=== PATIENT | female | born 1945 | race Caucasian/White ===

== ENCOUNTER 2016-11-13 01:28 | Observation (INO) ==
[2016-11-13] MEDS ORDERED: ONDANSETRON ODT 4 MG TABLET ONE (01:39)
[2016-11-13] MEDS ORDERED: ONDANSETRON ODT 4 MG TABLET SL ONE (01:41)
[2016-11-13] MEDS: HYDROmorphone 2 MG/ML SYRINGE IV PRN ×8 (02:00→21:04)
[2016-11-13] MEDS ORDERED: ONDANSETRON 4 MG/2 ML VIAL IV ONE (02:40)
[2016-11-13] MEDS ORDERED: SCOPOLAMINE 1 PATCH PATCH TOPICAL ONE ×3 (02:44→18:00)
[2016-11-13] MEDS ORDERED: 0.9 % SODIUM CHLORIDE 1,000 ML IV SCH ×3 (02:45→09:19)
[2016-11-13] MEDS ORDERED: SCOPOLAMINE 1 PATCH PATCH TOPICAL SCH (02:45)
--- NOTE | 2016-11-13 07:07 | Emergency Department Note ---
General Adult HPI - General Chief complaint: Dizziness Stated complaint: dizziness Time Seen by Provider: 11/13/16 02:36 Source: patient Mode of arrival: ambulatory Limitations: no limitations - History of Present Illness HPI Narrative: This patient has had vertigo and headache for last several days. He was treated by Dr. Robles in yesterday with IV fluids, following patch and Zofran. Symptoms are not completely gone away and she is back in the middle of night now. Headache is frontal no history of migraines. Apparently she did stop all her medications including Lipitor 4 days ago - Related Data Home Medications Medication Instructions Recorded Confirmed C-E2 0.6mg/E3 1.4mg 1 cap PO QDAY 03/21/15 11/12/16 C-Progesterone 1 cap PO QDAY 03/21/15 11/12/16 ascorbic acid (vitamin C) 500 mg 500 mg PO QDAY tab 09/11/15 11/12/16 chewable tablet vitamin B complex tablet 1 tab-cap PO QDAY 09/11/15 11/12/16 Biotin 1 mg PO QDAY 10/02/15 11/12/16 aspirin 81 mg chewable tablet See Dose Instructions PO QDAY tab 10/02/15 olmesartan 40 mg-amlodipine 10 1 tab-cap PO QDAY 08/19/16 11/12/16 mg-hydrochlorothiazide 25 mg tablet normal saline infusion 2 dose IV NOW 11/12/16 11/12/16 Previous Rx's Medication Instructions Recorded bimatoprost 0.03 % drops with 1 applic TOPICAL .COMPLEX #3 ml 09/17/15 applicator, eyelash base omeprazole 40 mg capsule,delayed 40 mg PO QDAY #90 cap 09/18/15 release solifenacin 5 mg tablet 5 mg PO QDAY #30 tab 10/18/15 fenofibrate 54 mg tablet 54 mg PO QDAY #90 tab 03/14/16 methocarbamol 500 mg tablet 1,000 mg PO QID PRN #180 tab 08/04/16 lorazepam 1 mg tablet 1 mg PO TID PRN #30 tab 08/19/16 trazodone 100 mg tablet 100 mg PO QHS #30 tab 08/19/16 bupropion HCl 75 mg tablet 75 mg PO BID #60 tab 09/04/16 atorvastatin 20 mg tablet 20 mg PO QDAY #90 tab 10/08/16 gabapentin 300 mg capsule 300 mg PO BID #180 cap 10/20/16 ondansetron 4 mg disintegrating 4 mg PO Q4H #20 tab 11/12/16 tablet ondansetron HCl 2 mg/mL 4 mg IV ONCE #2 ml 11/12/16 intravenous solution Allergies Allergy/AdvReac Type Severity Reaction Status Date / Time ciprofloxacin [From Cipro] AdvReac Unknown Hypertensio Verified 11/12/16 11:38 n Seasonal Allergy Unknown Other Uncoded 11/12/16 11:38 topamax AdvReac Severe Blurry Uncoded 11/12/16 11:38 Vision Review of Systems Constitutional: Denies: fever, chills Eyes: Denies: eye pain ENT ED: Denies: ear pain Cardiovascular: Denies: chest pain Respiratory: Denies: cough Gastrointestinal: Reports: nausea, vomiting. Denies: abdominal pain Genitourinary: Denies: urgency Musculoskeletal: Denies: back pain Integumentary: Denies: rash Neurological: Reports: headache, vertigo Past Medical History - Past Medical History Medical history: Reports: GERD, hyperlipidemia, hypertension, osteoporosis, renal disease, other (uclear sclerosis. Ischemic optic neuropathy. All bowel syndrome.) Surgical history ED: Reports: hysterectomy, orthopedic, other Psychiatric history: Reports: anxiety, depression Physical Exam - General Limitations: no limitations General appearance: alert - Head Head exam: atraumatic - Eye Eye exam: Present: normal appearance - ENT ENT exam: normal exam - Neck Neck exam: Present: normal inspection - Chest Chest inspection: Present: normal inspection - Respiratory Respiratory exam: Present: normal lung sounds bilaterally - Cardiovascular Cardiovascular exam: Present: regular rate, normal rhythm, normal heart sounds - Abdominal Exam Abdominal exam: Present: soft. Absent: distention, tenderness - Neurological Exam Neurological exam: Present: alert - Psychiatric Psychiatric exam: Present: normal affect - Skin Skin exam: Present: warm, dry Course Vital Signs Temperature 98.7 F 11/13/16 01:28 Pulse Rate 65 11/13/16 01:28 Respiratory Rate 19 11/13/16 01:28 Blood Pressure 173/95 11/13/16 01:28 Pulse Oximetry (%) 100 11/13/16 01:28 Temperature 98.7 F 11/13/16 01:28 Pulse Rate 61 11/13/16 07:18 Respiratory Rate 19 11/13/16 01:28 Blood Pressure 139/77 11/13/16 07:18 Pulse Oximetry (%) 99 11/13/16 07:18 Medical Decision Making - [facility] Narrative Medical decision making narrative: This patient will be admitted observation and get an MRI at 11. - Radiology Data Radiology results reviewed: Yes I reviewed the patient's radiology results. (CT scan was negative) Disposition Clinical Impression: Vertigo Disposition: Xfer As Outpt/Obs ([facility]) Condition: Good Referrals: Jona Guerra MD [Primary Care Provider] - Time of Disposition: 07:57
--- NOTE | 2016-11-13 08:00 | Cat Scan Report ---
History: Dizziness Findings: The brain was imaged without contrast at 2.5 mm intervals. There is no evidence of mass, hemorrhage or infarct. There are subtle areas of decreased attenuation in the white matter in both frontal lobes. This is a chronic finding which was seen on a prior MRI done on 10/20/14. The brainstem and cerebellum appear normal. The right side mastoids are undeveloped. The left side mastoids are clear. There is mucosal thickening along the robin of many of the ethmoid air cells. Impression: Normal brain for patient's age Mild bilateral ethmoid sinusitis Interpreted and Authenticated by: Brad Cha 11/13/16
[2016-11-13 08:38] LABS: Appearance,Urine CLEAR; Bacteria,Urine FEW /hpf (0); Bilirubin,Urine NEG (NEG); Color,Urine P.YELLOW; Glucose,Urine (UA) NORM (NORM); Leukocyte Esterase,Urine NEG /mcL (NEG); Mucus,Urine FEW /hpf (0); Nitrate,Urine NEG (NEG); PH,Urine 7.5 (5.0-9.0); Protein,Urine TRACE mg/dL (<25); Urine Blood NEG ery/mcL (<5); Urine RBC < 1 /hpf (0-1); Urine Squamous Epithelial Cell < 1 /hpf (0-4); Urine WBC 1 /hpf (0-4); Urobilinogen,Urine NORM (NORM)
[2016-11-13 08:43] LABS: Basophils # (Auto) 0 K/mcL (0.0-0.3); Basophils % (Auto) 0.5 % (0.0-2.0); Eosinophils # (Auto) 0.1 K/mcL (0.0-0.7); Eosinophils % (Auto) 1.6 % (0.0-7.0); Granulocytes % (Auto) 60.4 % (38.0-78.0); Lymphocytes # (Auto) 1.4 K/mcL (1.5-4.8); Lymphocytes % (Auto) 29.5 % (15.5-49.0); Mean Cell Volume 87.7 fL (80.0-100.0); Mean Corpuscular HGB Conc 32.7 g/dL (31.0-36.0); Mean Corpuscular Hemoglobin 28.7 pg (26.0-34.0); Monocytes # (Auto) 0.4 K/mcL (0.1-0.9); Platelet Count 213 K/mcL (140-440); RBC 4.05 M/mcL (4.00-5.20); Red Cell Distribution Width 14.6 % (11.5-14.5)
[2016-11-13 09:05] LABS: ALT/SGPT 16 U/l (0-40); Albumin 3.9 gm/dL (3.2-5.2); Albumin/Globulin Ratio 1.6 (1.0-2.3); Alkaline Phosphatase 68 U/L (39-117); Blood Urea Nitrogen 12 mg/dl (8-23)
[2016-11-13] MEDS ORDERED: DOCUSATE SODIUM 100 MG CAPSULE PO SCH (09:19)
[2016-11-13] MEDS ORDERED: ASPIRIN 81 MG TAB.CHEW CHEWED ONE (09:19)
[2016-11-13] MEDS ORDERED: PROMETHAZINE 25 MG/ML VIAL IV PRN ×2 (09:19→17:20)
[2016-11-13] MEDS ORDERED: POTASSIUM CHLORIDE 20 MEQ PACKET PO PRN ×2 (09:19→17:20)
[2016-11-13] MEDS ORDERED: MAGNESIUM SULFATE 2 GM/50 ML BAG IV PRN ×2 (09:19→17:20)
[2016-11-13] MEDS ORDERED: MULTIVIT,THER IRON,CA,FA & MIN 1 TABLET PO SCH (09:19)
[2016-11-13] MEDS ORDERED: ONDANSETRON 4 MG/2 ML VIAL IV PRN ×2 (09:19→17:20)
[2016-11-13] MEDS ORDERED: ACETAMINOPHEN 1,000 MG/100 ML BOTTLE IV PRN ×2 (09:19→17:20)
[2016-11-13] MEDS ORDERED: traZODone HCL 50 MG TABLET PO PRN (09:19)
[2016-11-13] MEDS ORDERED: ACETAMINOPHEN 325 MG TABLET PO PRN (09:19)
[2016-11-13] MEDS ORDERED: cefTRIAXone 2 GM in DEXTROSE 5% IN WATER 50 ML IV SCH (10:00)
[2016-11-13] MEDS ORDERED: THIAMINE 100 MG in 0.9 % SODIUM CHLORIDE 50 ML IV SCH (10:00)
[2016-11-13] MEDS ORDERED: diphenhydrAMINE 50 MG/ML VIAL IV PRN ×2 (13:18→17:20)
[2016-11-13] MEDS ORDERED: METHOCARBAMOL 500 MG TABLET PO PRN (13:19)
[2016-11-13] MEDS ORDERED: LORazepam 1 MG TABLET PO PRN (13:19)
[2016-11-13] MEDS ORDERED: BIMATOPROST TOPICAL SCH (13:30)
--- NOTE | 2016-11-13 13:40 | Magnetic Resonance Report ---
History: Dizziness Technique: The neck was imaged before and after gadolinium contrast. 3-D images were then created. Findings: The aortic arch and great vessels arising from the aorta are normal in caliber. At the origin of the left vertebral artery there are two contiguous stenoses. There is causing less than 50% stenosis. Distal to this the left vertebral artery is normal. The right vertebral artery is normal in caliber. The common carotids and carotid bifurcations are normal without evidence of plaque formation, stenosis or dissection. The internal and external carotid arteries are normal. Impression: Less than 50% stenosis at the origin of left vertebral artery Normal carotid arteries Interpreted and Authenticated by: Brad Cha 11/13/16
--- NOTE | 2016-11-13 13:47 | Magnetic Resonance Report ---
CLINICAL INFORMATION: New onset dizziness, rule out stroke COMPARISON: 10/20/14 TECHNIQUE: Sagittal T1 FLAIR, axial diffusion ADC, T1 FLAIR, T2 FLAIR propeller, T2 propeller gradient, T1 post Magnevist and coronal T1 FLAIR post Magnevist images were acquired. FINDINGS: The T2 and FLAIR sequences reveal the presence of a few small scattered white matter lesions in the centrum semiovale in the frontal lobes and a couple in the parietal lobes. There is also a small similar-appearing lesion in the left side of the belly of the orlando. These are no mass effect or restricted diffusion and none of them enhance with contrast. The largest is 3 mm. These have all remained stable since prior MRI done on 10/20/14. There is no evidence of an infarct, hemorrhage or mass. The ventricles and cisterns are normal. The post contrast views show no abnormal enhancement. The cerebellum and basal ganglia are normal. The mastoids are clear. There is mucosal thickening along the robin of the sphenoid, ethmoid and frontal sinuses. IMPRESSION: Stable mild white matter disease, predominantly involving the frontal lobes but with milder involvement in the parietal lobes and left side of the orlando. This is probably due to microvascular ischemia or degeneration No acute abnormality is present to explain the patient's dizziness Interpreted and Authenticated by: Brad Cha 11/13/16
--- NOTE | 2016-11-13 13:55 | Magnetic Resonance Report ---
History: Dizziness Technique: MRA images were acquired of the intracranial circulation. 3-D reconstructions were created. Postcontrast views were also acquired. Findings: The intracranial arterial circulation is normal. There is no evidence of stenosis, vascular occlusion, aneurysm or developmental malformation. The right posterior and anterior to indicating arteries are patent. Impression: Normal intracranial arterial circulation Interpreted and Authenticated by: Brad Cha 11/13/16
--- NOTE | 2016-11-13 13:55 | History and Physical Report ---
DATE OF ADMISSION: 11/13/2016 REASON FOR ADMISSION: Intense vertigo, headache, recent URI, dizziness. HISTORY OF CHIEF COMPLAINT: The patient is a 71-year-old who has had progressive dizziness with a spinning sensation after she had URI symptoms that started on Thursday. Symptoms have progressed to the point the patient can barely move or function with continuous spinning sensation. She does not endorse to auditory symptoms. She does endorse to headaches frontoparietal throbbing in nature. she denied history of migraine. Symptoms last for hours and is persistent, associated with severe nausea and vomiting. She denies unilateral weakness, Incontinence, [place] headache. Initial workup in the ER was negative with a head CT. Hospitalist Service consulted for evaluation of vertigo while patient received initial anti-vertigo medications. At time of examination, the patient is accompanied with her . She was able to provide most of the history. She appears distressed. Her nausea has improved after Zofran, but persistent vertigo. She avoids head movements. She denies recent changes in medication except for her regular medication that she is unable to take due to nausea. She denies abdominal pain, diarrhea, dysuria, recent sick contacts or photophobia. REVIEW OF SYSTEMS: Ten-point review of system was performed and negative except the ones discussed above. PAST MEDICAL HISTORY: 1. Hypertension. 2. GERD. 3. Hyperlipidemia. 4. Anxiety disorder. 5. Neuropathy. 6. 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 7. Irritable bowel syndrome. CURRENT MEDICATIONS: 1. Atorvastatin 20 mg. 2. Bupropion 75 mg. 3. Trazodone 100 mg. 4. Lorazepam 1 mg t.i.d. 5. Methocarbamol 1000 mg q.i.d. 6. Fenofibrate 54 mg daily. 7. Solifenacin 5 mg. 8. Omeprazole 40 mg. 9. Jzzhgniwzk-kigjamjwnf-hnzrazfkwmeulxwundc 40/10/25 mg one tab daily. 10. Aspirin 81 mg. FAMILY HISTORY: Significant for breast cancer in sister. Colon cancer in cousin. SOCIAL HISTORY: The patient is and lives in [facility]. No history of smoking, alcohol or substance abuse. ALLERGIES: 1. CIPRO. 2. TOPAMAX. PHYSICAL EXAMINATION: GENERAL: The patient is fairly distressed from persistent dizziness. VITAL SIGNS: Blood pressure 139/74, BMI 25, height 5 feet 2 inches, respiratory rate 16, temperature 97.1, pulse 67 and sats 99% on room air. HEENT: Pupils symmetric. Oral cavity is dry. No ear or nose discharge. No nystagmus. NECK: No lymphadenopathy. HEART: S1, S2, regular rhythm. No murmur. ABDOMEN: Soft. LOWER EXTREMITIES: No cyanosis or clubbing. No joint swelling. SKIN: No suspicious lesions. PSYCHIATRIC: Alert and cooperative. No anxiety. NEURO: Nonfocal, moving all four extremities. LABS AND IMAGING: White count 4.9, hemoglobin 11.6. Sodium 139, potassium 3.9, creatinine 0.9. Procalcitonin negative. UA unremarkable. CT head: No acute process. MRI brain along with MR angiogram head and neck pending. ASSESSMENT AND PLAN: A 71-year-old with acute onset of vertigo along with headache. 1. Acute onset of vertigo. Rule out vertebrobasilar insufficiency with MRI of brain. Recent URI may indicate vestibular neuritis given persistent symptoms and single episode lasting continuously for the 3 days without associated artery symptoms. However, we will evaluate for benign positional vertigo with Andrea-Hallpike and perform Shay maneuver if positive. There is no associated hearing loss, excluding Meniere's disease. Continue close monitoring and rule out CVA while we will manage patient symptomatically on crystalloids/anti-vertigo medication, including meclizine and diphenhydramine along with benzodiazepine as needed. 2. Other prior medical issues will be continued on home medications, including hyperlipidemia on statin, coronary artery disease on aspirin/statin, anxiety disorder on bupropion, neuropathy on gabapentin, and GERD on PPI. PLAN FOR TODAY: 1. Admit as observation. 2. Neuro imaging. 3. Anti-vertigo and antiemetics. AA:brady Job ID: [id number] Doc ID: [id number] Cullen Guerra MD [facility]
[2016-11-13] MEDS ORDERED: 0.9 % SODIUM CHLORIDE 10 ML SYRINGE IV SCH (14:00)
[2016-11-13] MEDS ORDERED: PANTOPRAZOLE 40 MG TABLET PO PRN ×2 (14:00→17:20)
[2016-11-13] MEDS ORDERED: HYDROmorphone 2 MG/ML SYRINGE IV PRN (17:20)
[2016-11-13] MEDS: 0.9 % SODIUM CHLORIDE 1,000 ML IV SCH (17:48)
[2016-11-13] MEDS: ACETAMINOPHEN 325 MG TABLET PO PRN (19:15)
[2016-11-13] MEDS: LORazepam 1 MG TABLET PO PRN (19:15)
[2016-11-13] MEDS: SENNOSIDES/DOCUSATE SODIUM 1 TAB TABLET PO SCH (20:05)
[2016-11-13] MEDS: GABAPENTIN 300 MG CAPSULE PO SCH (20:06)
[2016-11-13] MEDS: buPROPion 75 MG TABLET PO SCH (20:07)
[2016-11-13] MEDS: DOCUSATE SODIUM 100 MG CAPSULE PO SCH (20:07)
[2016-11-13] MEDS ORDERED: traZODone HCL 50 MG TABLET PO SCH (21:00)
[2016-11-13] MEDS ORDERED: SENNOSIDES/DOCUSATE SODIUM 1 TAB TABLET PO SCH (21:00)
[2016-11-13] MEDS ORDERED: GABAPENTIN 300 MG CAPSULE PO SCH (21:00)
[2016-11-13] MEDS ORDERED: buPROPion 75 MG TABLET PO SCH (21:00)
[2016-11-13] MEDS: traZODone HCL 50 MG TABLET PO SCH (22:45)
[2016-11-13] MEDS: 0.9 % SODIUM CHLORIDE 10 ML SYRINGE IV SCH (22:47)
[2016-11-14] MEDS: 0.9 % SODIUM CHLORIDE 1,000 ML IV SCH ×5 (00:30→21:59)
[2016-11-14] MEDS: ACETAMINOPHEN 325 MG TABLET PO PRN ×3 (02:02→17:22)
[2016-11-14] MEDS: LORazepam 1 MG TABLET PO PRN ×3 (02:03→19:41)
[2016-11-14] MEDS: HYDROmorphone 2 MG/ML SYRINGE IV PRN ×2 (02:23→09:03)
[2016-11-14] MEDS: 0.9 % SODIUM CHLORIDE 10 ML SYRINGE IV SCH ×3 (06:06→22:01)
[2016-11-14 06:26] LABS: Mean Cell Volume 88.5 fL (80.0-100.0); Mean Corpuscular HGB Conc 32.5 g/dL (31.0-36.0); Mean Corpuscular Hemoglobin 28.8 pg (26.0-34.0); Platelet Count 197 K/mcL (140-440); Red Cell Distribution Width 14.6 % (11.5-14.5)
[2016-11-14 06:59] LABS: ALT/SGPT 17 U/l (0-40); Albumin 3.5 gm/dL (3.2-5.2); Albumin/Globulin Ratio 1.6 (1.0-2.3); Alkaline Phosphatase 64 U/L (39-117); Bilirubin,Direct < 0.2 mg/dL (0.0-0.3); Blood Urea Nitrogen 15 mg/dl (8-23); Gamma Glutamyl Transpeptidase 46 U/L (5-36); Magnesium 1.8 mg/dL (1.6-2.5); Phosphorous 3.7 mg/dL (2.7-4.5)
[2016-11-14 08:09] LABS: Band Neutrophils % 2 % (0-10); Basophils % (Manual) 2 % (0-2); Eosinophils % (Manual) 2 % (0-7); Lymphocytes % 31 % (15-49); Monocytes % (Manual) 12 % (1-9); Platelet Estimate NORMAL (NORMAL); RBC Morphology NORMAL (NORMAL); Segmented Neutrophils % 51 % (38-78)
[2016-11-14] MEDS ORDERED: ATORVASTATIN 20 MG TABLET PO SCH (09:00)
[2016-11-14] MEDS ORDERED: amLODIPine 10 MG TABLET PO SCH (09:00)
[2016-11-14] MEDS ORDERED: [UNRECOGNIZED DRUG - OTHER] PO SCH (09:00)
[2016-11-14] MEDS ORDERED: AMLODIPIN PO SCH (09:00)
[2016-11-14] MEDS ORDERED: HYDROCHLOROTHIAZIDE 25 MG TABLET PO SCH (09:00)
[2016-11-14] MEDS ORDERED: OLMESARTAN MEDOXOMIL 20 MG TABLET PO SCH (09:00)
[2016-11-14] MEDS ORDERED: HCTHIAZID PO SCH (09:00)
[2016-11-14] MEDS ORDERED: OLMESARTAN PO SCH (09:00)
[2016-11-14] MEDS: ATORVASTATIN 20 MG TABLET PO SCH (09:02)
[2016-11-14] MEDS: MULTIVIT,THER IRON,CA,FA & MIN 1 TABLET PO SCH (09:02)
[2016-11-14] MEDS: HYDROCHLOROTHIAZIDE 25 MG TABLET PO SCH (09:03)
[2016-11-14] MEDS: amLODIPine 10 MG TABLET PO SCH (09:03)
[2016-11-14] MEDS: GABAPENTIN 300 MG CAPSULE PO SCH ×2 (09:03→19:41)
[2016-11-14] MEDS: DOCUSATE SODIUM 100 MG CAPSULE PO SCH ×2 (09:03→21:28)
[2016-11-14] MEDS: OLMESARTAN MEDOXOMIL 20 MG TABLET PO SCH (09:08)
[2016-11-14] MEDS: THIAMINE 100 MG in 0.9 % SODIUM CHLORIDE 50 ML IV SCH (09:09)
[2016-11-14] MEDS: buPROPion 75 MG TABLET PO SCH ×2 (09:09→21:28)
[2016-11-14] MEDS ORDERED: HYDROmorphone 2 MG/ML SYRINGE IV PRN (09:49)
[2016-11-14] MEDS: cefTRIAXone 2 GM in DEXTROSE 5% IN WATER 50 ML IV SCH (10:42)
--- NOTE | 2016-11-14 11:49 | Internal Med Progress Note ---
Medical - PN: Subj Patient information: Note initiated : 11/14/16 at 11:47 am Service Date, if different from initiated Date: [] Patient: Sparkle Lam 71 y/o F admitted on 11/13/16 for Dizziness/Acute Onset of Vertigo along w/ Headache. Chief Complaint: [] Interval history: 11/13 patient admitted with severe nausea vomiting and vertigo after URI. Likely vestibular neuritis. Negative MRI brain/MRA angiogram head and neck ruling out CVA. Andrea-Hallpike in 24 hours. Continue vestibular rehabilitation. Continue antivertigo medications. 11/14- patient complains of persistent headache. unremarkable for CVA. CT head ethmoid sinusitis. Negative pro-calcitonin CRP. No fever indicating again infectious process. Very likely vestibular neuritis given non-resolving persistent symptoms. Continue symptomatic management. Continue vestibular rehabilitation. - Constitutional Vitals: Vital Signs Temp Pulse Resp BP Pulse Ox 97.4 F L 56 L 16 136/84 99 11/14/16 08:24 11/14/16 04:56 11/14/16 10:00 11/14/16 08:24 11/14/16 10:00 Period Temp Pulse Resp BP Sys/Earl Pulse Ox Last 24 Hr 97.4 F-98.7 F 56-64 12-20 115-169/75-86 94-99 Intake and Output 11/13/16 11/14/16 11/14/16 21:59 05:59 13:59 Intake Total 300 / 300 1085 / 1085 Output Total 725 / 725 650 / 650 Balance -425 / -425 435 / 435 Weight 144 lb Intake & Output: Intake & Output 11/13/16 11/14/16 11/14/16 21:59 05:59 13:59 Intake Total 300 / 300 1085 / 1085 Output Total 725 / 725 650 / 650 Balance -425 / -425 435 / 435 Weight 144 lb Intake: IV 865 / 865 Sodium Chloride 0.9% 1, 865 / 865 000 ml @ 100 mls/hr IV . Q10H [facility] Rx#:[id number] Oral 300 / 300 220 / 220 Output: Void Amount 725 / 725 650 / 650 Other: Meal Breakfast Percent of Meal Consumed 50% Feeding Ability Independent General appearance: cooperative, no acute distress Exam: alert oriented nonlabored breathing Appears drowsy persistent dizziness Medical - PN: Obj Da - Labs CBC & Chem 7: 11/14/16 04:40 11/14/16 04:40 Labs: Abnormal Lab Results 11/14/16 11/14/16 11/13/16 04:40 04:40 09:23 RBC 3.70 L Hgb 10.6 L Hct 32.7 L RDW 14.6 H Monocytes % (Manual) 12 H ESR 31 H Calcium 8.2 L GGT 46 H Total Protein 5.7 L Meds: Medications Acetaminophen (Tylenol) 650 mg PO Q4-6HP PRN PRN Reason: PAIN/FEVER > 101 Last Admin: 11/14/16 02:02 Dose: 650 mg Amlodipine Besylate (Norvasc) 10 mg PO DAILY [facility] Last Admin: 11/14/16 09:03 Dose: 10 mg Atorvastatin Calcium (Lipitor) 20 mg PO QDAY [facility] Last Admin: 11/14/16 09:02 Dose: 20 mg Bupropion HCl (Wellbutrin) 75 mg PO BID [facility] Last Admin: 11/14/16 09:09 Dose: 75 mg Diphenhydramine HCl (Benadryl) 50 mg IV Q4-6HP PRN PRN Reason: Vertigo Docusate Sodium (Colace) 100 mg PO BID [facility] Last Admin: 11/14/16 09:03 Dose: 100 mg Gabapentin (Neurontin) 300 mg PO BID [facility] Last Admin: 11/14/16 09:03 Dose: 300 mg Hydrochlorothiazide (Oretic) 25 mg PO DAILY [facility] Last Admin: 11/14/16 09:03 Dose: 25 mg Hydromorphone HCl (Dilaudid) 0.25 mg IV Q4-6HP PRN PRN Reason: Pain Magnesium Sulfate (Magnesium Sulfate) 2 gm in 50 mls @ 50 mls/hr IV UD PRN PRN Reason: MG = or < 1.7 Sodium Chloride (Sodium Chloride 0.9%) 1,000 mls @ 100 mls/hr IV .Q10H [facility] Last Admin: 11/14/16 09:10 Dose: 100 mls/hr Acetaminophen (Ofirmev) 1,000 mg in 100 mls @ 200 mls/hr IV Q6HP PRN PRN Reason: PAIN/FEVER > 101 Thiamine HCl 100 mg/ Sodium (Chloride) 51 mls @ 50 mls/hr IV DAILY [facility] Stop: 11/15/16 10:02 Last Admin: 11/14/16 09:09 Dose: 50 mls/hr Ceftriaxone Sodium 2 gm/ (Dextrose) 50 mls @ 100 mls/hr IV Q24H [facility] Last Admin: 11/14/16 10:42 Dose: 100 mls/hr Iron Carb/Multivit/[place]/Folic Acid (Multivitamin W/Minerals) 1 tab PO DAILY [facility] Last Admin: 11/14/16 09:02 Dose: 1 tab Lorazepam (Ativan) 1 mg PO TIDP PRN PRN Reason: Pain Last Admin: 11/14/16 02:03 Dose: 1 mg Methocarbamol (Robaxin) 1,000 mg PO PRN PRN PRN Reason: Pain Olmesartan (Benicar) 40 mg PO DAILY [facility] Last Admin: 11/14/16 09:08 Dose: 40 mg Ondansetron HCl (Zofran) 4 mg IV Q4-6HP PRN PRN Reason: Nausea And Vomiting Pantoprazole Sodium (Protonix) 40 mg PO PRN PRN PRN Reason: Heartburn Potassium Chloride (Klor-Con) 40 meq PO DAILYP PRN PRN Reason: K+ < 3.5 Promethazine HCl (Phenergan) 6.25 mg IV Q4-6HP PRN PRN Reason: Nausea And Vomiting Senna/Docusate Sodium (Senna Plus Tablet) 1 tab PO [facility] Last Admin: 11/13/16 20:05 Dose: 1 tab Sodium Chloride (Saline Flush) 10 ml IV Q8 [facility] Last Admin: 11/14/16 06:06 Dose: Not Given Trazodone HCl (Desyrel) 100 mg PO [facility] Last Admin: 11/13/16 22:45 Dose: Not Given Medical - PN: A/P - Time Spent With Patient Total time spent is greater than 50% in coordination of care (as documented) at patient's floor/unit and/or counseling patient: 15 - 24 minutes (1) Vertigo Status: Acute Assessment and plan: * Vertigo-likely vestibular neuritis. Continue conservative management. * Headache-as needed analgesics * Hypertension continue thiazide/amlodipine/ARB * Neuropathy on gabapentin * Hyperlipidemia statin * anxiety on bupropion * GERD on PPI plan * continue vestibular rehabilitation * conservative management * Pre-existing medical condition management as above * Possible discharge in 24 hours if symptomatically improved Current Visit: Yes Medical - PN: Qual - Stroke Onset of Symptoms Date: 11/08/16 Onset of Symptoms Time: Symptom Onset Unknown: No - VTE Deep Vein Thrombosis/Pulmonary Embolism Present on Admission: No
[2016-11-14] MEDS: METHOCARBAMOL 500 MG TABLET PO PRN ×2 (12:07→19:40)
[2016-11-14] MEDS ORDERED: METHOCARBAMOL 750 MG TABLET PO ONE (19:19)
[2016-11-14] MEDS: SENNOSIDES/DOCUSATE SODIUM 1 TAB TABLET PO SCH (19:41)
[2016-11-14] MEDS: traZODone HCL 50 MG TABLET PO SCH (21:28)
[2016-11-15] MEDS: METHOCARBAMOL 500 MG TABLET PO PRN (03:15)
[2016-11-15 04:57] LABS: Mean Cell Volume 87.5 fL (80.0-100.0); Mean Corpuscular HGB Conc 32.6 g/dL (31.0-36.0); Mean Corpuscular Hemoglobin 28.5 pg (26.0-34.0); Platelet Count 197 K/mcL (140-440); RBC 3.79 M/mcL (4.00-5.20); Red Cell Distribution Width 14.3 % (11.5-14.5)
[2016-11-15 05:24] LABS: ALT/SGPT 22 U/l (0-40); Albumin 3.6 gm/dL (3.2-5.2); Albumin/Globulin Ratio 1.6 (1.0-2.3); Alkaline Phosphatase 69 U/L (39-117); Bilirubin,Direct < 0.2 mg/dL (0.0-0.3); Blood Urea Nitrogen 13 mg/dl (8-23); Gamma Glutamyl Transpeptidase 68 U/L (5-36); Magnesium 1.8 mg/dL (1.6-2.5); Phosphorous 3.2 mg/dL (2.7-4.5); Uric Acid 4.7 mg/dL (2.5-8.0)
[2016-11-15] MEDS: 0.9 % SODIUM CHLORIDE 10 ML SYRINGE IV SCH (05:34)
[2016-11-15 07:01] LABS: Eosinophils % (Manual) 3 % (0-7); Lymphocytes % 31 % (15-49); Monocytes % (Manual) 7 % (1-9); Platelet Estimate NORMAL (NORMAL); RBC Morphology NORMAL (NORMAL); Segmented Neutrophils % 58 % (38-78)
[2016-11-15] MEDS: ACETAMINOPHEN 325 MG TABLET PO PRN (07:18)
[2016-11-15] MEDS: buPROPion 75 MG TABLET PO SCH (08:35)
[2016-11-15] MEDS: OLMESARTAN MEDOXOMIL 20 MG TABLET PO SCH (09:03)
[2016-11-15] MEDS: 0.9 % SODIUM CHLORIDE 1,000 ML IV SCH (09:03)
[2016-11-15] MEDS: GABAPENTIN 300 MG CAPSULE PO SCH (09:05)
[2016-11-15] MEDS: HYDROCHLOROTHIAZIDE 25 MG TABLET PO SCH ×2 (09:05→09:25)
[2016-11-15] MEDS: DOCUSATE SODIUM 100 MG CAPSULE PO SCH (09:05)
[2016-11-15] MEDS: ATORVASTATIN 20 MG TABLET PO SCH (09:06)
[2016-11-15] MEDS: MULTIVIT,THER IRON,CA,FA & MIN 1 TABLET PO SCH (09:07)
[2016-11-15] MEDS: THIAMINE 100 MG in 0.9 % SODIUM CHLORIDE 50 ML IV SCH (09:09)
[2016-11-15] MEDS ORDERED: oxyCODONE/APAP 5/325MG TABLET PO ONE (09:15)
[2016-11-15] MEDS: amLODIPine 10 MG TABLET PO SCH (09:25)
[2016-11-15] MEDS: cefTRIAXone 2 GM in DEXTROSE 5% IN WATER 50 ML IV SCH (10:19)
[2016-11-15] MEDS: LORazepam 1 MG TABLET PO PRN (10:20)
--- NOTE | 2016-11-15 10:38 | Discharge Plan ---
Discharge Plan - Patient/Caregiver Discharge Instructions Discharge Summary: DISCHARGE DIAGNOSES * Vertigo-likely postinfectious vestibular neuritis. responding well to benzodiazepines/diphenhydramine. Patient clinically much improved with resolution of nausea. Undergoing vestibular rehabilitation. Discharge with outpatient continued vestibular rehabilitation in detailed instructions for undertaking fall precautions as below. * Mild headache-responding well to Tylenol,/Percocet * Hypertension remained stable on home dose thiazide/amlodipine/ARB * Neuropathy on gabapentin * Hyperlipidemia statin * anxiety on bupropion/as needed benzodiazepine * GERD on PPI Brief hospital course 11/13 patient admitted with severe nausea vomiting and vertigo after URI. Likely vestibular neuritis. Negative MRI brain/MRA angiogram head and neck ruling out CVA. [place]-Hallpike in 24 hours. Continue vestibular rehabilitation. Continue antivertigo medications. 11/14- patient complains of persistent headache. unremarkable for CVA. CT head ethmoid sinusitis. Negative pro-calcitonin CRP. No fever indicating again infectious process. Very likely vestibular neuritis given non-resolving persistent symptoms. Continue symptomatic management. Continue vestibular rehabilitation. 11/15- patient doing well. Improved vertigo, nausea. Resolved. Headache much improved. Responding very well to Percocet/Tylenol. Discharge with outpatient follow-up with PCP/vestibular rehabilitation for fall precautions and self training to minimize symptoms during an acute episode Of vertigo. symptoms should improve over time given likely diagnosis of post infectious vestibular neuritis. Negative workup including CT head MRI brain along with MR angiogram head and neck excluding CVA. detailed discharge instructions as Below Activity: as instructed (family to assist with ambulation during episodes of vertigo), other (with persistent vertigo use assistanceto ambulate. Maintain fall risk) Diet: Regular Diet Additional Instructions: Follow-up PCP in 5 days I recommend primary care physician to check CBC BMP UA as a posthospital follow- up follow-up with outpatient vestibular rehabilitation continue antivertigo as advised-including diphenhydramine/ benzodiazepines/ meclizine please provide occupational therapy/physical therapist recommendations on discharge Continue fall precautions. use assistance for ambulation during episodes of vertigo. Await for a couple of minutes before changing position from lying to sitting/sitting to standing Return to ER if worsening vision changes/unilateral weakness/persistent nausea vomiting Review risk and side effect profile of medications including opioids/ benzodiazepines. Side effect may include mild to severe reaction including respiratory depression/fall and even which can be prevented by close follow-up with PCP and monitoring for side effects and taking extreme precautions and seeking assistance during ambulation Refrain from smoking and alcohol Continue diet and activity as advised Please review medication list with patient prior to discharge Please schedule follow-up with PCP/Providers prior to discharge and provide printouts CC- PCP Prescriptions: LORazepam [Ativan] 1 mg PO TIDP PRN #10 tablet PRN Reason: Pain Meclizine [Antivert] 12.5 mg PO BIDP PRN #10 tablet PRN Reason: Vertigo diphenhydrAMINE HCL [Valu-Dryl] 12.5 mg PO BIDP PRN #10 tab.chew PRN Reason: Vertigo oxyCODONE/APAP [Percocet 5-325 mg] 1 tab PO Q4HP PRN #10 tablet PRN Reason: Pain - Follow up Plan Follow up with: Jona Guerra MD [Primary Care Provider] - Disposition: Home, Self-Care Prognosis: Good Rehab Potential: Undetermined I certify that the patient requires SNF services.: No Overall status at discharge: patient is progressing back to baseline
[2016-11-15] MEDS ORDERED: PNEUMOCOCCAL 23-VAL P-SAC VAC 0.5 ML VIAL IM ONE (12:00)
== END 2016-11-15 12:35 | disposition home or self-care (01) ==
LOC: ED 01:28 → ICU 09:07 → INTOOBSV 09:07 → ICU 09:15 → MEDSUR 17:13
PROVIDERS: ADMIT Internal Medicine; ATTEND Internal Medicine